=== PATIENT | female | born 1995 | race Caucasian/White ===

== ENCOUNTER 2016-06-21 13:31 | Emergency (ER) | payer BC ==
[~2016-06-21] VITALS: Ht 157.5 cm; Wt 50.0 kg
[~2016-06-21 13:31] MED LIST: DICY1TAB26 PO; HYDR50TA94 PO; ZITH200S PO
[2016-06-21 13:33] VITALS: BP 124/72; PULSE 72; RESP 20; TEMP 98; O2SAT 98
[2016-06-21] MEDS ORDERED: SODIUM CHLOR 0.9% 1000 ML INJ 1,000 ML IV ONE (13:51)
[2016-06-21] MEDS ORDERED: KETOROLAC TROMETHAMINE 30 MG/ML (IVP) VIAL IV PUSH ONE (14:00)
[2016-06-21] MEDS ORDERED: ONDANSETRON HCL 4 MG/2 ML VIAL IV PUSH ONE (14:00)
--- NOTE | 2016-06-21 14:18 | PD ---
Data Data Last Documented VS Vital Signs Date Time Temp Pulse Resp B/P Pulse Ox O2 Delivery O2 Flow Rate FiO2 06/21/16 19:40 75 18 111/68 99 06/21/16 17:09 Room Air 06/21/16 13:33 98.0 Orders Complete Blood Count With Diff (06/21/16 13:44) Comprehensive Metabolic Panel (06/21/16 13:44) Lipase (06/21/16 13:44) Urinalysis - C+S If Indicated (06/21/16 13:44) Iv Access Insert/Monitor (06/21/16 13:44) Ed Urine Pregnancytest Poc (06/21/16 13:44) Chest, Single Ap (06/21/16 13:51) Ketorolac Inj (Toradol Inj) (06/21/16 14:00) Ondansetron Inj (Zofran Inj) (06/21/16 14:00) Ct Abd/Pel W/O Iv Contrast (06/21/16 13:51) Sodium Chlor 0.9% 1000 Ml Inj (Ns 1000 M (06/21/16 13:51) Morphine Inj (Morphine Inj) (06/21/16 14:30) Urine Culture (06/21/16 13:54) Ceftriaxone Inj (Rocephin Inj) (06/21/16 15:00) Gc And Chlamydia Pcr (06/21/16 15:44) Wet Prep Profile (06/21/16 15:44) Azithromycin Powd Pack (Zithromax Powd P (06/21/16 16:00) Lorazepam Inj (Ativan Inj) (06/21/16 16:15) Us Pelvis Comp W Dop Transvag (06/21/16 ) Labs Laboratory Tests Test 06/21/16 06/21/16 06/21/16 13:54 14:08 15:56 Urine Color YELLOW Urine Turbidity HAZY Urine pH 5.5 Urine Specific [place] 1.030 Urine Protein TRACE mg/dL Urine Glucose (UA) NEG mg/dL Urine Ketones 40 mg/dL Urine Occult Blood LARGE Urine Nitrite NEG Urine Bilirubin NEG Urine Urobilinogen 2.0 MG/DL Urine Leukocyte Esterase SMALL Urine RBC /hpf Urine WBC 4 /hpf Urine Squamous Epithelial 12 /hpf Cells Urine Transitional Epithelial <1 /hpf Cells Urine Bacteria MOD /hpf Urine Mucus FEW /lpf Microscopic Urinalysis Comment CULTURE INDICATED White Blood Count 8.3 TH/MM3 Red Blood Count 4.86 MIL/MM3 Hemoglobin 14.5 GM/DL Hematocrit 43.0 % Mean Corpuscular Volume 88.4 FL Mean Corpuscular Hemoglobin 29.8 PG Mean Corpuscular Hemoglobin 33.7 % Concent Red Cell Distribution Width 12.3 % Platelet Count 259 TH/MM3 Mean Platelet Volume 6.7 FL Neutrophils (%) (Auto) 69.2 % Lymphocytes (%) (Auto) 25.0 % Monocytes (%) (Auto) 5.0 % Eosinophils (%) (Auto) 0.5 % Basophils (%) (Auto) 0.3 % Neutrophils # (Auto) 5.7 TH/MM3 Lymphocytes # (Auto) 2.1 TH/MM3 Monocytes # (Auto) 0.4 TH/MM3 Eosinophils # (Auto) 0.0 TH/MM3 Basophils # (Auto) 0.0 TH/MM3 CBC Comment DIFF FINAL Differential Comment Sodium Level 139 MEQ/L Potassium Level 3.8 MEQ/L Chloride Level 105 MEQ/L Carbon Dioxide Level 23.6 MEQ/L Anion Gap 10 MEQ/L Blood Urea Nitrogen 12 MG/DL Creatinine 0.73 MG/DL Estimat Glomerular Filtration 102 ML/MIN Rate Random Glucose 85 MG/DL Calcium Level 9.0 MG/DL Total Bilirubin 0.6 MG/DL Aspartate Amino Transf 17 U/L (AST/SGOT) Alanine Aminotransferase 22 U/L (ALT/SGPT) Alkaline Phosphatase 83 U/L Total Protein 8.0 GM/DL Albumin 3.9 GM/DL Lipase 124 U/L Clue Cells (Wet Prep) NONE SEEN Vaginal Trichomonas (Wet Prep) NONE SEEN Vaginal Yeast (Wet Prep) NONE SEEN MDM Supervised Visit with RC: Yes Narrative Course I, Dr. Daigle, have reviewed the advance practice practitioner's documentation and am in agreement, met with the patient face to face, made the diagnosis, and the medical decision making was done by me. *My assessment and Findings: Patient's 21-year-old female presents with acute onset of left flank pain and left abdominal pain. Mild nausea without vomiting and dysuria. Patient states she is currently having vaginal bleeding. Last period was a week and a half ago. She does take control pills and there is no way she could be . My ddx includes ectopic , TOA, torsion, PID, Kidney stone. Appears uncomfortable and needs evaluation for the above DDx. US doppler TVUS shows no abnormality. Preg test negative CT normal. Will treat for STD. Scripts Ondansetron (Zofran)4 Mg Tab4 Mg PO Q6HR PRN (NAUSEA OR VOMITING) #20 TAB Prov:Samuel Daigle MD 06/21/[address] 75 Mg Tabdr75 Mg PO BID PRN (PAIN SCALE 1 TO 10) #20 TAB Prov:Samuel Daigle MD 06/21/16 Samuel Daigle MD Jun 21, 2016 14:18
--- NOTE | 2016-06-21 14:23 | PD ---
HPI Chief Complaint: Flank/Kidney Pain Time Seen by Provider: 14:20 Travel History International Travel<30 days: No Contact w/Intl Traveler<30days: No Traveled to known affect area: No History of Present Illness HPI 21-year-old female that presents to the ED for evaluation of left flank pain. Per patient is happened about 4-5 hours ago. Per patient she denies any injury. The patient came all of a sudden. Per patient is severe and debilitating. Denies any urinary or bowel movement issues. Per patient she does have some bleeding and possible discharge from her vagina. Denies any chest pain or shortness of breath. Patient is reproducible on the left upper quadrant as well as the flank. She denies ever having anything like this before. She denies any bowel movement issue. Per patient she relates that she is feeling nauseous and has vomited a couple times. She has a history of depression but no other medical problem. No allergies to medication. Per patient the pain is severe 10 out of 10. She has not taken anything for this. She went to an urgent care and they told her to come here. She denies . She has no allergies to medication. Pain does not radiate. She has never had like this before. No history of kidney stones. PFSH Past Medical History Hx Anticoagulant Therapy: No Anxiety: Yes Depression: Yes Cardiovascular Problems: No Chemotherapy: No Cerebrovascular Accident: No Diabetes: No Diminished Hearing: No Psychiatric: Yes (DEPRESSION, ANXIETY) Respiratory: No ?: Not LMP: 06/04/16 : 0 Past Surgical History Surgical History: No Previous Surgery Hysterectomy: No Social History Alcohol Use: No Tobacco Use: No Substance Use: No Allergies-Medications (Allergen,Severity, Reaction): Coded Allergies: No Known Allergies (Unverified , 05/26/14) Reported Meds & Prescriptions Reported Meds & Active Scripts Active Bentyl (Dicyclomine HCl) 20 Mg Tab 20 Mg PO Q8 Reported Hydroxyzine Hcl (Hydroxyzine HCl) 50 Mg Tab 50 Mg PO Q6 PRN Zithromax (Azithromycin) 200 Mg/5 Ml Gabriela 200 Mg PO DAILY Review of Systems General / Constitutional: No: Fever, Chills, Weight Gain, Weight Loss, Other Eyes: No: Diploplia, Blurred Vision, Photophobia, Drainage, Redness, Foreign Body Sensation, Pain, Tearing, Blind Spots, Visual changes, Blindness, Other HENT: No: Headaches, Vertigo, Lightheadedness, Sore Throat, Rhinitis, Rhinorrhea, Congestion, Nosebleed, Neck Stiffness, Neck Pain, Masses, Gingival Bleeding, Dental Difficulties, Ear Discharge, Earache, Other Cardiovascular: No: Chest Pain or Discomfort, Palpitations, Irregular Rhythm, Tachycardia, Diaphoresis, Syncope, Dyspnea on exertion, Varicosities, Edema, Cyanosis, Varicosities, Phlebitis, Claudication, Other Respiratory: No: Cough, Shortness of Breath, Wheezing, Sneezing, Orthopnea, Hemoptysis, Stridor, Night Sweats, Pleuritic Pain, Other Gastrointestinal: Positive: Nausea, Vomiting, No: Diarrhea, Abdominal Pain, Hematemesis, Hematochezia, Constipation, Changes in Bowel Habits, Indigestion, Dysphagia, Loss of Appetite, Other Genitourinary: Positive: Flank Pain, No: Urgency, Frequency, Dysuria, Nocturia , Hematuria, Decreased Urinary Output, Oliguria, Hesitancy, Dribbling, Incontinence, Pelvic Pain, Dyspareunia, Discharge, Dysmenorrhea, Menorrhagia, Metorrhagia, Vaginal Bleeding, Other Musculoskeletal: No: Myalgias, Arthralgias, Limited ROM, Weakness, Cramping, Edema, Pain, Atrophy, Other Skin: No Rash, No Itching, No Dryness, No Lumps, No Hives, No Change in Pigmentation, No Change in nails, No Alopecia, No Lesions, No Breast Lumps, No Breast Tenderness, No Breast Swelling, No Other Neurologic: No: Weakness, Dizziness, Syncope, Focal Abnormalities, Coordination Problem, Tremor, Ataxia, Headache, Change in Mentation, Slurred Speech, Paresthesia, Incontinence, Seizures, Sensory Disturbance, Other Psychiatric: No: Anxiety, Depression, Suicidal Ideations, Disorder of Thought, Mood Disorder, Substance Abuse, Homicidal Ideation, Other Endocrine: No: Heat Intolerance, Cold Intolerance, Polyuria, Polydipsia, Other Hematologic/Lymphatic: No: Easy Bruising, Lymph Node Enlargement, Other Physical Exam Narrative GENERAL: SKIN: Warm and dry. HEAD: Atraumatic. Normocephalic. EYES: Pupils equal and round. No scleral icterus. No injection or drainage. ENT: No nasal bleeding or discharge. Mucous membranes pink and moist. Tongue is midline. No uvula deviation. NECK: Trachea midline. No JVD. CARDIOVASCULAR: Regular rate and rhythm. No murmurs, S3, S4. RESPIRATORY: No accessory muscle use. Clear to auscultation. Breath sounds equal bilaterally. GASTROINTESTINAL: Abdomen soft, very tender with palpation on the left flank as well as the left upper quadrant, nondistended. Hepatic and splenic margins not palpable. Pelvic exam: The with female nurse present. Patient has obvious greenish brownish liquidy discharge coming from the vagina. No lymphadenopathy. No masses on the labia. Patient has no cervical motion tenderness on examination. No adnexal tenderness. MUSCULOSKELETAL: Extremities without clubbing, cyanosis, or edema. No obvious deformities. Full range of motion of the upper and lower extremities bilaterally. 2+ pulses bilaterally. NEUROLOGICAL: Awake and alert. No obvious cranial nerve deficits. Motor grossly within normal limits. Five out of 5 muscle strength in the arms and legs. Normal speech. PSYCHIATRIC: Appropriate mood and affect; insight and judgment normal. Data Data Last Documented VS Vital Signs Date Time Temp Pulse Resp B/P Pulse Ox O2 Delivery O2 Flow Rate FiO2 06/21/16 17:09 73 18 109/69 99 Room Air 06/21/16 13:33 98.0 Orders Complete Blood Count With Diff (06/21/16 13:44) Comprehensive Metabolic Panel (06/21/16 13:44) Lipase (06/21/16 13:44) Urinalysis - C+S If Indicated (06/21/16 13:44) Iv Access Insert/Monitor (06/21/16 13:44) Ed Urine Pregnancytest Poc (06/21/16 13:44) Chest, Single Ap (06/21/16 13:51) Ketorolac Inj (Toradol Inj) (06/21/16 14:00) Ondansetron Inj (Zofran Inj) (06/21/16 14:00) Ct Abd/Pel W/O Iv Contrast (06/21/16 13:51) Sodium Chlor 0.9% 1000 Ml Inj (Ns 1000 M (06/21/16 13:51) Morphine Inj (Morphine Inj) (06/21/16 14:30) Urine Culture (06/21/16 13:54) Ceftriaxone Inj (Rocephin Inj) (06/21/16 15:00) Gc And Chlamydia Pcr (06/21/16 15:44) Wet Prep Profile (06/21/16 15:44) Azithromycin Powd Pack (Zithromax Powd P (06/21/16 16:00) Lorazepam Inj (Ativan Inj) (06/21/16 16:15) Us Pelvis Comp W Dop Transvag (06/21/16 ) Labs Laboratory Tests Test 06/21/16 06/21/16 06/21/16 13:54 14:08 15:56 Urine Color YELLOW Urine Turbidity HAZY Urine pH 5.5 Urine Specific [place] 1.030 Urine Protein TRACE mg/dL Urine Glucose (UA) NEG mg/dL Urine Ketones 40 mg/dL Urine Occult Blood LARGE Urine Nitrite NEG Urine Bilirubin NEG Urine Urobilinogen 2.0 MG/DL Urine Leukocyte Esterase SMALL Urine RBC /hpf Urine WBC 4 /hpf Urine Squamous Epithelial 12 /hpf Cells Urine Transitional Epithelial <1 /hpf Cells Urine Bacteria MOD /hpf Urine Mucus FEW /lpf Microscopic Urinalysis Comment CULTURE INDICATED White Blood Count 8.3 TH/MM3 Red Blood Count 4.86 MIL/MM3 Hemoglobin 14.5 GM/DL Hematocrit 43.0 % Mean Corpuscular Volume 88.4 FL Mean Corpuscular Hemoglobin 29.8 PG Mean Corpuscular Hemoglobin 33.7 % Concent Red Cell Distribution Width 12.3 % Platelet Count 259 TH/MM3 Mean Platelet Volume 6.7 FL Neutrophils (%) (Auto) 69.2 % Lymphocytes (%) (Auto) 25.0 % Monocytes (%) (Auto) 5.0 % Eosinophils (%) (Auto) 0.5 % Basophils (%) (Auto) 0.3 % Neutrophils # (Auto) 5.7 TH/MM3 Lymphocytes # (Auto) 2.1 TH/MM3 Monocytes # (Auto) 0.4 TH/MM3 Eosinophils # (Auto) 0.0 TH/MM3 Basophils # (Auto) 0.0 TH/MM3 CBC Comment DIFF FINAL Differential Comment Sodium Level 139 MEQ/L Potassium Level 3.8 MEQ/L Chloride Level 105 MEQ/L Carbon Dioxide Level 23.6 MEQ/L Anion Gap 10 MEQ/L Blood Urea Nitrogen 12 MG/DL Creatinine 0.73 MG/DL Estimat Glomerular Filtration 102 ML/MIN Rate Random Glucose 85 MG/DL Calcium Level 9.0 MG/DL Total Bilirubin 0.6 MG/DL Aspartate Amino Transf 17 U/L (AST/SGOT) Alanine Aminotransferase 22 U/L (ALT/SGPT) Alkaline Phosphatase 83 U/L Total Protein 8.0 GM/DL Albumin 3.9 GM/DL Lipase 124 U/L Clue Cells (Wet Prep) NONE SEEN Vaginal Trichomonas (Wet Prep) NONE SEEN Vaginal Yeast (Wet Prep) NONE SEEN MDM Medical Decision Making Medical Screen Exam Complete: Yes Emergency Medical Condition: Yes Medical Record Reviewed: Yes Interpretation(s) CBC & BMP Diagram 06/21/16 14:08 UA shows UTI Last Impressions Chest X-Ray 06/21/16 1351 Signed Impressions: Service Date/Time: Tuesday, June 21, 2016 14:05 - CONCLUSION: No acute cardiopulmonary disease identified. Franky Ly MD Abdomen/Pelvis CT 06/21/16 1351 Signed Impressions: Service Date/Time: Tuesday, June 21, 2016 15:09 - CONCLUSION: 1. No acute inflammatory process. 2. No renal calculi or hydronephrosis. Remington Romano MD LFTs and lipase WNL wet prep negative Differential Diagnosis Pelvic pain versus kidney stone versus spinal nephritis versus UTI versus cystitis versus acute abdomen versus pancreatitis versus peptic ulcer disease Narrative Course 21-year-old female that presents to the ED for evaluation of severe flank pain. Patient was properly examined and was found to have signs and symptoms consistent with appears to be possible kidney stone. Patient did complain of some bleeding from the vagina and possible discharge. At this time labs and imaging were done. was negative. Concerning for kidney stone likely. Patient was given IV pain medications and antiemetics. Labs and imaging showed no sign of acute disease. Pelvic exam shows vaginal discharge but no sign of service: Motion tenderness. This appears to be likely vaginitis with early PID. Patient will be treated for this with ceftriaxone and azithromycin. Patient had resolution of some low symptoms to given medications. Patient will be sent home with prescription for diclofenac sodium for pain. Zofran for nausea. Told to follow with the health Department. See ED for worsening symptoms. Diagnosis Primary Impression: Vaginitis Qualified Code: N76.0 - Acute vaginitis Additional Impression: PID (acute pelvic inflammatory disease) Patient Instructions: General Instructions, Narcotic given in the ED Additional Instructions: Take medications as prescribed. Follow with PCP. Follow with the health Department. No sex for at least 2 weeks until better. See ED worsening symptoms. Always use protection. Med/Other Pt SpecificInfo: Prescription(s) given Disposition: 01 DISCHARGE HOME Condition: Stable Paul Oconnor Jun 21, 2016 14:23
[2016-06-21] MEDS ORDERED: MORPHINE SULFATE 4 MG/ML INJ IV PUSH ONE (14:30)
[2016-06-21 14:33] LABS: AUTOMATED NEUTROPHIL # 5.7 TH/MM3 (1.8-7.7); BASOPHIL % 0.3 % (0.0-2.0); EOSINOPHIL % 0.5 % (0.0-4.0); HEMO FLAGS DIFF FINAL; LYMPHOCYTE # 2.1 TH/MM3 (1.0-4.8); MEAN CELL VOLUME 88.4 FL (80.0-100.0); MEAN CORPUSCULAR HEMOGLOBIN 29.8 PG (27.0-34.0); MEAN CORPUSCULAR HGB CONC 33.7 % (32.0-36.0); NEUT % 69.2 % (16.0-70.0); PLATELET COUNT 259 TH/MM3 (150-450); RED BLOOD COUNT 4.86 MIL/MM3 (4.00-5.30); RED CELL DISTRIBUTION WIDTH 12.3 % (11.6-17.2); WHITE BLOOD COUNT 8.3 TH/MM3 (4.0-11.0)
[2016-06-21 14:40] LABS: BACTERIA, URINE MOD /hpf; BLOOD, URINE LARGE (NEG); COMMENT (UR) CULTURE INDICATED; CULTURE IF INDICATED CULTURE INDICATED; GLUCOSE,URINE NEG (NEG); KETONE, URINE 40 mg/dL (NEG); MUCUS URINE FEW /lpf (OCC); NITRITE,URINE NEG (NEG); PH, URINE 5.5 (5.0-8.5); SQUAMOUS EPITHELIAL CELL URINE 12 /hpf (0-5); TRANSITIONAL EPI CELLS, URINE <1 /hpf; URINE COLOR YELLOW (YELLW/STRAW)
[2016-06-21 14:52] LABS: ANION GAP 10 MEQ/L (5-15); AST (GOT) 17 U/L (16-38); BICARBONATE 23.6 MEQ/L (21.0-32.0); BLOOD UREA NITROGEN 12 MG/DL (7-18); CHLORIDE 105 MEQ/L (98-107); GLOMERULAR FILTRATION RATE 102 ML/MIN (>89); POTASSIUM 3.8 MEQ/L (3.5-5.1); SODIUM (NA) 139 MEQ/L (136-145)
[2016-06-21 14:56] LABS: ALKALINE PHOSPHATASE 83 U/L (45-117); ALT (GPT) 22 U/L (9-42); TOTAL BILIRUBIN ADULT 0.6 MG/DL (0.2-1.0)
[2016-06-21] MEDS ORDERED: cefTRIAXone INJ 1,000 MG in SODIUM CHLORIDE 0.9% INJ 100 ML IV ONE (15:00)
--- NOTE | 2016-06-21 15:02 | RADRPT ---
EXAM DATE/TIME: 06/21/2016 14:05 [facility] COMPARISON: No previous studies available for comparison. INDICATIONS : Lower chest and back pain. MEDICAL HISTORY : None. SURGICAL HISTORY : None. ENCOUNTER: Initial ACUITY: 2 days PAIN SCORE: 10/10 LOCATION: Bilateral chest FINDINGS: Single AP view of the chest. The lungs are clear. Cardiomediastinal silhouette within normal limits. No evidence of pleural effusion or pneumothorax. CONCLUSION: No acute cardiopulmonary disease identified. Franky Ly MD on June 21, 2016 at 15:00 Board Certified Radiologist. This report was verified electronically.
--- NOTE | 2016-06-21 15:26 | RADRPT ---
EXAM DATE/TIME: 06/21/2016 15:09 [facility] COMPARISON: No previous studies available for comparison. INDICATIONS : Left flank pain, nausea and vomiting. ORAL CONTRAST: No oral contrast ingested. RADIATION DOSE: 5.80 CTDIvol (mGy) MEDICAL HISTORY : None SURGICAL HISTORY : None. ENCOUNTER: Initial ACUITY: 1 day PAIN SCALE: 7/10 LOCATION: Left flank TECHNIQUE: Volumetric scanning of the abdomen and pelvis was performed. Using automated exposure control and ad justment of the mA and/or kV according to patient size, radiation dose was kept as low as reasonably achievable to obtain optimal diagnostic quality images. FINDINGS: LOWER LUNGS: The visualized lower lungs are clear. LIVER: Homogeneous density without lesion. There is no dilation of the biliary tree. No calcified gallston es. SPLEEN: Normal size without lesion. PANCREAS: Within normal limits. KIDNEYS: Normal in size and shape. There is no mass, stone, or hydronephrosis. ADRENAL GLANDS: Within normal limits. VASCULAR: There is no aortic aneurysm. BOWEL/MESENTERY: The stomach, small bowel, and colon demonstrate no acute abnormality. There is no free intraperitone al air or fluid. ABDOMINAL WALL: Within normal limits. RETROPERITONEUM: There is no lymphadenopathy. BLADDER: No wall thickening or mass. REPRODUCTIVE: Within normal limits. INGUINAL: There is no lymphadenopathy or hernia. MUSCULOSKELETAL: Within normal limits for patient age. CONCLUSION: 1. No acute inflammatory process. 2. No renal calculi or hydronephrosis. Remington Romano MD on June 21, 2016 at 15:23 Board Certified Radiologist. This report was verified electronically.
[2016-06-21] MEDS ORDERED: AZITHROMYCIN PWD FOR SUSP 1 GM PACKET PO ONE (16:00)
[2016-06-21] MEDS ORDERED: LORazepam 2 MG/ML VIAL IV PUSH ONE (16:15)
[2016-06-21 17:09] VITALS: BP 109/69; PULSE 73; RESP 18; O2SAT 99
--- NOTE | 2016-06-21 18:52 | RADRPT ---
EXAM DATE/TIME: 06/21/2016 17:23 [facility] COMPARISON: No previous studies available for comparison. INDICATIONS : Pelvic pain. MEDICAL HISTORY : Depression. Anxiety. Left flank pain. SURGICAL HISTORY : None. ENCOUNTER: Initial ACUITY: 1 day PAIN SCORE: 2/10 LOCATION: Bilateral pelvis MEASUREMENTS: UTERUS: 9.1 x 5.3 x 2.8 cm ENDOMETRIAL STRIPE: 2 mm RIGHT OVARY: 2.6 x 1.6 x 1.4 cm LEFT OVARY: 2.9 x 1.7 x 1.5 cm FINDINGS: UTERUS: The myometrium has homogeneous echotexture without mass. Trace fluid in the cervical canal. RIGHT OVARY: Ovary contains no mass or significant cystic lesion. LEFT OVARY: Ovary contains no mass or significant cystic lesion. MISCELLANEOUS: No free fluid. CONCLUSION: 1. Trace fluid in the endocervical canal. 2. Otherwise normal pelvic sonogram. Remington Romano MD on June 21, 2016 at 18:50 Board Certified Radiologist. This report was verified electronically.
[2016-06-21] MEDS ORDERED: DICL75TA PO (19:19)
[2016-06-21] MEDS ORDERED: ZOFR4TAB PO (19:19)
[2016-06-21 19:40] VITALS: BP 111/68
[2016-06-21 22:15] LABS: CHLAMYDIA PCR NOT DETECTED (NOT DETECT); NEISSERIA PCR NOT DETECTED (NOT DETECT)
== END 2016-06-21 19:51 | disposition home or self-care (01) ==
LOC: NEPE 13:31
DX: N76.0 Acute vaginitis (principal); N73.9 Female pelvic inflammatory disease, unspecified; N93.9 Abnormal uterine and vaginal bleeding, unspecified; R10.12 Left upper quadrant pain; R11.2 Nausea with vomiting, unspecified; Z86.59 Personal history of other mental and behavioral disorders
CPT/HCPCS: 71010; 74176; 76830; 76856; 80053; 81001; 83690; 84703; 85025; 87086; 87210; 87491; 87591; 93975; 96374; 96375; 99284; J0696; J1885; J2060; J2270; J2405; J7030

== ENCOUNTER 2016-07-13 22:35 | Emergency (ER) | payer BC ==
[~2016-07-13] VITALS: Ht 157.5 cm; Wt 54.0 kg
[~2016-07-13 22:35] MED LIST changes: +DICL75TA PO; -DICY1TAB26 PO; -HYDR50TA94 PO; -ZITH200S PO; +ZOFR4TAB PO
[2016-07-13 22:37] VITALS: BP 117/69; PULSE 79; RESP 16; TEMP 98.5; O2SAT 100
[2016-07-13] MEDS ORDERED: LISD40 PO (22:59)
[2016-07-13] MEDS ORDERED: LEXA20TA PO (22:59)
[2016-07-13] MEDS ORDERED: ALPR0.25 PO (22:59)
[2016-07-13 23:15] LABS: AUTOMATED NEUTROPHIL # 3.7 TH/MM3 (1.8-7.7); BASOPHIL % 0.6 % (0.0-2.0); EOSINOPHIL # 0.1 TH/MM3 (0-0.4); EOSINOPHIL % 1.8 % (0.0-4.0); HEMATOCRIT 42.7 % (35.0-46.0); HEMO FLAGS DIFF FINAL; LYMPH % 43.2 % (9.0-44.0); LYMPHOCYTE # 3.3 TH/MM3 (1.0-4.8); MEAN CELL VOLUME 88.3 FL (80.0-100.0); MEAN CORPUSCULAR HEMOGLOBIN 30.1 PG (27.0-34.0); NEUT % 48.4 % (16.0-70.0); PLATELET COUNT 230 TH/MM3 (150-450); RED BLOOD COUNT 4.84 MIL/MM3 (4.00-5.30); RED CELL DISTRIBUTION WIDTH 12.2 % (11.6-17.2); WHITE BLOOD COUNT 7.6 TH/MM3 (4.0-11.0)
--- NOTE | 2016-07-13 23:15 | PD ---
HPI Chief Complaint: Suicide Ideation/Attempt Time Seen by Provider: 22:59 Travel History International Travel<30 days: No Contact w/Intl Traveler<30days: No Traveled to known affect area: No History of Present Illness HPI 21-year-old female presents to the emergency department by private vehicle in the care of friends for evaluation of depression and suicidal thoughts. Patient states she's had suicidal thoughts times one week. Patient states symptoms are getting worse. Patient has not acted on her thoughts and does not have a specific plan. Patient has attempted suicide in the past with cutting oximetry 2 years ago. Patient has family history of mental health issues. Patient is treated for anxiety and depression. Patient has not taken her evening dose of medications. Patient denies overdosing on medications. Patient did take a one-time dose of Advil 400 mg for mild headache. Currently headache is 2/10 in intensity. Patient leaves headaches is related to stress. Headache is not described as sudden onset thunderclap or worst ever. No other symptoms are reported such as change in mentation visual disturbance nausea vomiting or balance disturbance upper or lower extremity numbness tingling or weakness. Patient denies any recent febrile illness respiratory illness GI illness or urinary tract symptoms or musculoskeletal cutaneous concerns. Last period was 2 weeks ago and patient denies . PFSH Past Medical History Narrative Medical Anxiety depression; no alcohol use no tobacco use no substance use; family history of mental health disease; nursing notes reviewed Hx Anticoagulant Therapy: No Bipolar Disorder: Yes Anxiety: Yes Depression: Yes Cardiovascular Problems: No Chemotherapy: No Cerebrovascular Accident: No Diabetes: No Diminished Hearing: No Psychiatric: Yes (DEPRESSION, ANXIETY) Respiratory: No Immunizations Current: Yes Influenza Vaccination: Yes ?: Not LMP: 2 WKS AGO : 0 Past Surgical History Surgical History: No Previous Surgery Hysterectomy: No Social History Alcohol Use: No Tobacco Use: No Substance Use: No Allergies-Medications (Allergen,Severity, Reaction): Coded Allergies: No Known Allergies (Unverified , 07/13/16) Reported Meds & Prescriptions Reported Meds & Active Scripts Active Reported Vyvanse (Lisdexamfetamine Dimesylate) 40 Mg Cap 40 Mg PO DAILY Alprazolam 0.25 Mg Tab 0.25 Mg PO Q8H PRN Lexapro (Escitalopram Oxalate) 20 Mg Tab 20 Mg PO DAILY Review of Systems Except as stated in HPI: all other systems reviewed are Neg Physical Exam Narrative GENERAL: Well-developed well-nourished female in no acute distress no respiratory distress SKIN: Warm and dry. HEAD: Atraumatic. Normocephalic. EYES: Pupils equal and round. No scleral icterus. No injection or drainage. ENT: No nasal bleeding or discharge. Mucous membranes pink and moist. NECK: Trachea midline. No JVD. CARDIOVASCULAR: Regular rate and rhythm. RESPIRATORY: No accessory muscle use. Clear to auscultation. Breath sounds equal bilaterally. GASTROINTESTINAL: Abdomen soft, non-tender, nondistended. Hepatic and splenic margins not palpable. MUSCULOSKELETAL: Extremities without clubbing, cyanosis, or edema. No obvious deformities. NEUROLOGICAL: Awake and alert. No obvious cranial nerve deficits. Motor grossly within normal limits. Five out of 5 muscle strength in the arms and legs. Normal speech. PSYCHIATRIC: Depressed mood and affect. Data Data Last Documented VS Vital Signs Date Time Temp Pulse Resp B/P Pulse Ox O2 Delivery O2 Flow Rate FiO2 07/13/16 22:37 98.5 79 16 117/69 100 Room Air Orders Complete Blood Count With Diff (07/13/16 22:59) Comprehensive Metabolic Panel (07/13/16 22:59) Ed Urine Pregnancytest Poc (07/13/16 22:59) Psych Screen (07/13/16 22:59) Drug Screen, Random Urine (07/13/16 22:59) Labs Laboratory Tests Test 07/13/16 07/14/16 23:00 00:40 White Blood Count 7.6 TH/MM3 Red Blood Count 4.84 MIL/MM3 Hemoglobin 14.5 GM/DL Hematocrit 42.7 % Mean Corpuscular Volume 88.3 FL Mean Corpuscular Hemoglobin 30.1 PG Mean Corpuscular Hemoglobin 34.0 % Concent Red Cell Distribution Width 12.2 % Platelet Count 230 TH/MM3 Mean Platelet Volume 6.9 FL Neutrophils (%) (Auto) 48.4 % Lymphocytes (%) (Auto) 43.2 % Monocytes (%) (Auto) 6.0 % Eosinophils (%) (Auto) 1.8 % Basophils (%) (Auto) 0.6 % Neutrophils # (Auto) 3.7 TH/MM3 Lymphocytes # (Auto) 3.3 TH/MM3 Monocytes # (Auto) 0.5 TH/MM3 Eosinophils # (Auto) 0.1 TH/MM3 Basophils # (Auto) 0.0 TH/MM3 CBC Comment DIFF FINAL Differential Comment Sodium Level 140 MEQ/L Potassium Level 3.7 MEQ/L Chloride Level 103 MEQ/L Carbon Dioxide Level 26.7 MEQ/L Anion Gap 10 MEQ/L Blood Urea Nitrogen 11 MG/DL Creatinine 0.79 MG/DL Estimat Glomerular Filtration 93 ML/MIN Rate Random Glucose 86 MG/DL Calcium Level 8.6 MG/DL Total Bilirubin 0.5 MG/DL Aspartate Amino Transf 20 U/L (AST/SGOT) Alanine Aminotransferase 24 U/L (ALT/SGPT) Alkaline Phosphatase 77 U/L Total Protein 7.5 GM/DL Albumin 3.9 GM/DL Urine Opiates Screen NEG Urine Barbiturates Screen NEG Urine Amphetamines Screen NEG Urine Benzodiazepines Screen NEG Urine Cocaine Screen NEG Urine Cannabinoids Screen NEG MDM Medical Decision Making Medical Screen Exam Complete: Yes Emergency Medical Condition: Yes Medical Record Reviewed: Yes Interpretation(s) poc hcg: negative UDS: negative CBC & BMP Diagram 07/13/16 23:00 Vital Signs Date Time Temp Pulse Resp B/P Pulse Ox O2 Delivery O2 Flow Rate FiO2 07/13/16 22:37 98.5 79 16 117/69 100 Room Air Differential Diagnosis Suicidal ideation, depression, mood disorder Narrative Course Specimens collected and sent for resulting with plan for medical clearance and psych screening for suicidal ideation; Rossi act placed by me Medically cleared at 1:38 AM lab values all in normal range patient is stable for psych screen Diagnosis Primary Impression: Suicidal ideation Princess Benoit MD Jul 13, 2016 23:15
[2016-07-13 23:31] LABS: ALKALINE PHOSPHATASE 77 U/L (45-117); TOTAL BILIRUBIN ADULT 0.5 MG/DL (0.2-1.0)
[2016-07-13 23:38] LABS: ALT (GPT) 24 U/L (9-42); ANION GAP 10 MEQ/L (5-15); AST (GOT) 20 U/L (16-38); BICARBONATE 26.7 MEQ/L (21.0-32.0); BLOOD UREA NITROGEN 11 MG/DL (7-18); CHLORIDE 103 MEQ/L (98-107); GLOMERULAR FILTRATION RATE 93 ML/MIN (>89); POTASSIUM 3.7 MEQ/L (3.5-5.1); SODIUM (NA) 140 MEQ/L (136-145)
[2016-07-14 01:17] LABS: AMPHETAMINE, URINE NEG (NEG); BARBITURATES, URINE NEG (NEG); COCAINE, URINE NEG (NEG)
[2016-07-14 03:00] VITALS: BP 116/65; PULSE 80; RESP 18; O2SAT 97
[2016-07-14 08:20] VITALS: BP 98/56; PULSE 76; RESP 18; O2SAT 98
[2016-07-14 10:53] VITALS: BP 104/57; PULSE 85; RESP 18; O2SAT 99
== END 2016-07-14 12:33 ==
LOC: NEPC 22:35 → NEPA 07-14 12:33
DX: R45.851 Suicidal ideations (principal); F41.8 Other specified anxiety disorders; F31.9 Bipolar disorder, unspecified
CPT/HCPCS: 80053; 80307; 84703; 85025; 99285

== ENCOUNTER 2016-07-19 23:42 | Emergency (ER) | payer BC, OTHER ==
[~2016-07-19] VITALS: Ht 157.5 cm; Wt 54.5 kg
[~2016-07-19 23:42] MED LIST changes: +ALPR0.25 PO; -DICL75TA PO; +LEXA20TA PO; +LISD40 PO; -ZOFR4TAB PO
[2016-07-19 23:52] VITALS: BP 110/69; PULSE 82; RESP 16; TEMP 98.5; O2SAT 99
--- NOTE | 2016-07-20 00:03 | PD ---
HPI Chief Complaint: Psychiatric Symptoms Time Seen by Provider: 00:02 Travel History International Travel<30 days: No Contact w/Intl Traveler<30days: No Traveled to known affect area: No History of Present Illness HPI Patient is under Rossi act by police for allegedly making suicidal statements. Patient denies any suicidal or homicidal ideations. Denies any medical this time. Denies any chest pain, shortness of breath, headache, fevers, nausea, vomiting, or abdominal pain. PFSH Past Medical History Hx Anticoagulant Therapy: No Bipolar Disorder: Yes Anxiety: Yes Depression: Yes Cardiovascular Problems: No Chemotherapy: No Cerebrovascular Accident: No Diabetes: No Diminished Hearing: No Psychiatric: Yes (DEPRESSION, ANXIETY) Respiratory: No Immunizations Current: Yes Tetanus Vaccination: < 5 Years ?: Unknown LMP: 2WKS : 0 Past Surgical History Hysterectomy: No Social History Alcohol Use: No Tobacco Use: No Substance Use: No (PT DENIES) Allergies-Medications (Allergen,Severity, Reaction): Coded Allergies: No Known Allergies (Unverified , 07/19/16) Reported Meds & Prescriptions Reported Meds & Active Scripts Active Reported Vyvanse (Lisdexamfetamine Dimesylate) 40 Mg Cap 40 Mg PO DAILY Alprazolam 0.25 Mg Tab 0.25 Mg PO Q8H PRN Lexapro (Escitalopram Oxalate) 20 Mg Tab 20 Mg PO DAILY Review of Systems Except as stated in HPI: all other systems reviewed are Neg Physical Exam Narrative GENERAL: Well-developed, well nourished, in no acute distress, and non-ill appearing. SKIN: Warm and dry. HEAD: Atraumatic. Normocephalic. EYES: Pupils equal and round. EOMI. No scleral icterus. No injection or drainage. ENT: No nasal bleeding or discharge. Mucous membranes pink and moist. NECK: Trachea midline. Supple. No nuclear rigidity. CARDIOVASCULAR: Regular rate and rhythm. No murmur appreciated. RESPIRATORY: No accessory muscle use. No respiratory distress. Clear to auscultation. Breath sounds equal bilaterally. MUSCULOSKELETAL: No obvious deformities. No clubbing. No cyanosis. No edema. Full range of motion. NEUROLOGICAL: Awake and alert. No obvious cranial nerve deficits. Motor grossly within normal limits. Normal speech. PSYCHIATRIC: Appropriate mood and affect; insight and judgment normal. Data Data Last Documented VS Vital Signs Date Time Temp Pulse Resp B/P Pulse Ox O2 Delivery O2 Flow Rate FiO2 07/19/16 23:55 16 07/19/16 23:52 98.5 82 110/69 99 Orders Complete Blood Count With Diff (07/19/16 23:45) Comprehensive Metabolic Panel (07/19/16 23:45) Ed Urine Pregnancytest Poc (07/19/16 23:45) Psych Screen (07/19/16 23:45) Drug Screen, Random Urine (07/19/16 23:45) Alcohol (Ethanol) (07/19/16 23:45) Salicylates (Aspirin) (07/19/16 23:45) Tylenol (Acetaminophen) (07/19/16 23:45) Labs Laboratory Tests Test 07/20/16 00:00 White Blood Count 8.6 TH/MM3 Red Blood Count 4.46 MIL/MM3 Hemoglobin 13.5 GM/DL Hematocrit 38.9 % Mean Corpuscular Volume 87.2 FL Mean Corpuscular Hemoglobin 30.2 PG Mean Corpuscular Hemoglobin 34.7 % Concent Red Cell Distribution Width 12.2 % Platelet Count 211 TH/MM3 Mean Platelet Volume 7.3 FL Neutrophils (%) (Auto) 59.3 % Lymphocytes (%) (Auto) 32.9 % Monocytes (%) (Auto) 5.9 % Eosinophils (%) (Auto) 1.4 % Basophils (%) (Auto) 0.5 % Neutrophils # (Auto) 5.1 TH/MM3 Lymphocytes # (Auto) 2.8 TH/MM3 Monocytes # (Auto) 0.5 TH/MM3 Eosinophils # (Auto) 0.1 TH/MM3 Basophils # (Auto) 0.0 TH/MM3 CBC Comment DIFF FINAL Differential Comment Sodium Level 139 MEQ/L Potassium Level 3.5 MEQ/L Chloride Level 107 MEQ/L Carbon Dioxide Level 22.9 MEQ/L Anion Gap 9 MEQ/L Blood Urea Nitrogen 8 MG/DL Creatinine 0.60 MG/DL Estimat Glomerular Filtration 127 ML/MIN Rate Random Glucose 82 MG/DL Calcium Level 9.1 MG/DL Total Bilirubin 0.3 MG/DL Aspartate Amino Transf 12 U/L (AST/SGOT) Alanine Aminotransferase 24 U/L (ALT/SGPT) Alkaline Phosphatase 68 U/L Total Protein 7.2 GM/DL Albumin 3.8 GM/DL Salicylates Level LESS THAN 1.7 MG/DL Urine Opiates Screen NEG Acetaminophen Level LESS THAN 2.0 MCG/ML Urine Barbiturates Screen NEG Urine Amphetamines Screen NEG Urine Benzodiazepines Screen NEG Urine Cocaine Screen NEG Urine Cannabinoids Screen NEG Ethyl Alcohol Level LESS THAN 3 MG/DL MDM Medical Decision Making Medical Screen Exam Complete: Yes Emergency Medical Condition: Yes Differential Diagnosis Homicidal, suicidal, electrolyte abnormality, adjustment disorder, other Narrative Course Patient was seen and examined. Labs were obtained and reviewed. Patient medically cleared for further treatment and evaluation by psych. Final disposition per psych. Diagnosis Primary Impression: Medical clearance for psychiatric admission Condition: Fernandez Oliver Jul 20, 2016 00:03
[2016-07-20 00:45] LABS: AUTOMATED NEUTROPHIL # 5.1 TH/MM3 (1.8-7.7); BASOPHIL % 0.5 % (0.0-2.0); EOSINOPHIL # 0.1 TH/MM3 (0-0.4); EOSINOPHIL % 1.4 % (0.0-4.0); HEMATOCRIT 38.9 % (35.0-46.0); HEMO FLAGS DIFF FINAL; LYMPH % 32.9 % (9.0-44.0); LYMPHOCYTE # 2.8 TH/MM3 (1.0-4.8); MEAN CELL VOLUME 87.2 FL (80.0-100.0); MEAN CORPUSCULAR HEMOGLOBIN 30.2 PG (27.0-34.0); MEAN CORPUSCULAR HGB CONC 34.7 % (32.0-36.0); MONO % 5.9 % (0.0-8.0); NEUT % 59.3 % (16.0-70.0); PLATELET COUNT 211 TH/MM3 (150-450); RED BLOOD COUNT 4.46 MIL/MM3 (4.00-5.30); RED CELL DISTRIBUTION WIDTH 12.2 % (11.6-17.2); WHITE BLOOD COUNT 8.6 TH/MM3 (4.0-11.0)
[2016-07-20 00:51] LABS: AMPHETAMINE, URINE NEG (NEG); BARBITURATES, URINE NEG (NEG); COCAINE, URINE NEG (NEG)
[2016-07-20 02:05] VITALS: BP 128/87; PULSE 115; RESP 20; O2SAT 98
[2016-07-20 02:43] LABS: ACETAMINOPHEN LESS THAN 2.0 MCG/ML (10.0-30.0); ALKALINE PHOSPHATASE 68 U/L (45-117); TOTAL BILIRUBIN ADULT 0.3 MG/DL (0.2-1.0)
[2016-07-20 03:11] LABS: ALT (GPT) 24 U/L (9-42); ANION GAP 9 MEQ/L (5-15); AST (GOT) 12 U/L (16-38); BICARBONATE 22.9 MEQ/L (21.0-32.0); BLOOD UREA NITROGEN 8 MG/DL (7-18); CHLORIDE 107 MEQ/L (98-107); GLOMERULAR FILTRATION RATE 127 ML/MIN (>89); POTASSIUM 3.5 MEQ/L (3.5-5.1); SODIUM (NA) 139 MEQ/L (136-145)
[2016-07-20 06:24] VITALS: BP 96/55; PULSE 90; RESP 18; O2SAT 98
[2016-07-20 11:01] VITALS: BP 107/60; PULSE 89; RESP 18; O2SAT 99
--- NOTE | 2016-07-20 14:58 | PD ---
History of Present Illness Chief Complaint: Psychiatric Symptoms Time Seen by Provider: 11:20 Travel History International Travel<30 Days: No Contact w/Intl Traveler<30days: No Known affected area: No Legal Status Legal Status: Rossi Act Rossi Act Signed By: Stephanie Smyth History of Present Illness: History of Present Illness HPI 20 year old female with history of adjustment disorder who presents under a Rossi act by police for allegedly making suicidal statements. As per the report the patient had reported to her friends that she was experiencing suicidal thoughts and they called the police. Patient states that she was experiencing a panic attack and that her friends became frightened . EMR is reviewed. She was BA on July 13 for suicidal ideation and was sent to [facility] for treatment . She reports compliance with her medications. Denies any substance use and her toxicology is negative. Patient is seen in J pod. Awake, alert, oriented female. Dressed casually with appropriate hygiene. She is calm, cooperative . tearful. Speech is clear and logical. No evidence of any thought process disturbance. She denies any sucidal ideation. She has been having anxiety regarding school and is considering taking a semester off. She tells me that she has called her father and he is on his way to pick her up and take her back home to [place]. Father is seen. He has no concerns over her safety and plans on bringing her back home. I have advised him to seek continuing care in [place] and to continue with current medication. 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 Hx Alcohol Use: No Hx Tobacco Use: No Hx Substance Use: No (PT DENIES) Hx of Substance Use Treatment: No Family Psychiatric History negative Allergies-Medications (Allergen,Severity, Reaction): Coded Allergies: No Known Allergies (Unverified , 07/19/16) Reported Meds & Prescriptions Reported Meds & Active Scripts Active Reported Vyvanse (Lisdexamfetamine Dimesylate) 40 Mg Cap 40 Mg PO DAILY Alprazolam 0.25 Mg Tab 0.25 Mg PO Q8H PRN Lexapro (Escitalopram Oxalate) 20 Mg Tab 20 Mg PO DAILY Review of Systems Except as stated in HPI: all other systems reviewed are Neg Psychiatric: COMPLAINS OF: Anxiety Exam Alert: Yes [place]: Person (ox4) Mood: Anxious Affect: Euthymic, Other (tearful at times) Speech: Clear, Logical Eye Contact: Normal Memory Intact: Comment (no impairment) Hallucinations: Other (negative) Delusions: No Suicidal: Ideation (deneis any) Homicidal: Ideation (deneis any) Insight/Judgement Fair. Not impaired MDM Medical Decision Making Medical Record Reviewed: Yes Assessment/Plan 21 year old with history of adjustment disorder w anxiety who is experiencing stress over her academic work. She is in tx and at this time denies any suicidal or homicidal ideation. She has no psychosis. Does not meet BA criteria. Her father is here at [facility] [place] [facility] and is planning on taking her home. Psychoeducation provided. Continue with outpatient treatment. Orders Complete Blood Count With Diff (07/19/16 23:45) Comprehensive Metabolic Panel (07/19/16 23:45) Ed Urine Pregnancytest Poc (07/19/16 23:45) Psych Screen (07/19/16 23:45) Drug Screen, Random Urine (07/19/16 23:45) Alcohol (Ethanol) (07/19/16 23:45) Salicylates (Aspirin) (07/19/16 23:45) Tylenol (Acetaminophen) (07/19/16 23:45) Diet Regular Basic (07/20/16 Breakfast) Results Vital Signs Date Time Temp Pulse Resp B/P Pulse Ox O2 Delivery O2 Flow Rate FiO2 07/20/16 11:01 89 18 107/60 99 Room Air 07/20/16 06:24 90 18 96/55 98 07/20/16 02:05 115 20 128/87 98 07/19/16 23:55 16 07/19/16 23:52 98.5 82 16 110/69 99 Laboratory Tests Test 07/20/16 00:00 White Blood Count 8.6 Red Blood Count 4.46 Hemoglobin 13.5 Hematocrit 38.9 Mean Corpuscular Volume 87.2 Mean Corpuscular Hemoglobin 30.2 Mean Corpuscular Hemoglobin 34.7 Concent Red Cell Distribution Width 12.2 Platelet Count 211 Mean Platelet Volume 7.3 Neutrophils (%) (Auto) 59.3 Lymphocytes (%) (Auto) 32.9 Monocytes (%) (Auto) 5.9 Eosinophils (%) (Auto) 1.4 Basophils (%) (Auto) 0.5 Neutrophils # (Auto) 5.1 Lymphocytes # (Auto) 2.8 Monocytes # (Auto) 0.5 Eosinophils # (Auto) 0.1 Basophils # (Auto) 0.0 CBC Comment DIFF FINAL Differential Comment Sodium Level 139 Potassium Level 3.5 Chloride Level 107 Carbon Dioxide Level 22.9 Anion Gap 9 Blood Urea Nitrogen 8 Creatinine 0.60 Estimat Glomerular Filtration 127 Rate Random Glucose 82 Calcium Level 9.1 Total Bilirubin 0.3 Aspartate Amino Transf 12 (AST/SGOT) Alanine Aminotransferase 24 (ALT/SGPT) Alkaline Phosphatase 68 Total Protein 7.2 Albumin 3.8 Salicylates Level LESS THAN 1.7 Urine Opiates Screen NEG Acetaminophen Level LESS THAN 2.0 Urine Barbiturates Screen NEG Urine Amphetamines Screen NEG Urine Benzodiazepines Screen NEG Urine Cocaine Screen NEG Urine Cannabinoids Screen NEG Ethyl Alcohol Level LESS THAN 3 Diagnosis Primary Impression: Adjustment disorder Additional Impression: Medical clearance for psychiatric admission Psychiatrically Cleared: Yes Departure Forms: Tests/Procedures Patient Instructions: General Instructions, Stress (ED), Mood Disorders (ED), Medical Clearance for Psychiatric Care (ED) Additional Instructions: Dx: Adjustment Disorder with Depression. Follow up with outpatient primary care provider. Follow up with outpatient psychiatric provider. Follow up with outpatient therapist of choice. Return to ER if symptoms worsen. Disposition: 01 DISCHARGE HOME Condition: Stable Problem Qualifiers Primary Impression: Adjustment disorder Qualified Code: F43.23 - Adjustment disorder with mixed anxiety and depressed mood Marbella Jarrett Jul 20, 2016 14:58
== END 2016-07-20 12:36 | disposition home or self-care (01) ==
LOC: NEPA 23:42 → NEPJ 07-20 12:36
DX: F43.23 Adjustment disorder with mixed anxiety and depressed mood (principal); Z02.89 Encounter for other administrative examinations; Z86.59 Personal history of other mental and behavioral disorders
CPT/HCPCS: 80053; 80307; 85025; 99283